=== PATIENT | male | born 1940 | race Caucasian/White ===

== ENCOUNTER → 2018-04-15 17:22 | Outpatient (CLI) | payer MEDICARE, OTHER, SELFPAY ==
[2018-04-07 15:57] VITALS: BMI 29.5
[2018-04-15 17:48] LABS: Absolute Lymphocyte Count 1.22 X10^3/ul (0.83-4.51); Absolute Neutrophil Count 6.6 X10^3/uL (2.0-7.7); Basophil# 0.01 X10^3/uL; Basophil% 0.1 % (0-1); Eosinophil# 0.08 X10^3/uL; Eosinophils% 0.9 % (0-5); Lymphocyte # 1.22 X10^3/ul (4.0); Lymphocyte % 13.6 % (19-41); Mean Corpuscular Hgb 31.1 pg (27.0-32.0); Mean Corpuscular Volume 100.5 fL (80-94); Mean Platelet Vol. 9.9 fl (6.2-12.0); Monocyte% 11.2 % (0-10); Neutrophil # 6.63 X10^3/uL (2.7-7.7); Neutrophil % 74.1 % (47-70); Platelet Count 281 K/mm3 (150-450); RBC Distribution Width CV 12.8 % (11.6-14.6); RBC Distribution Width SD 47.5 fl (35.1-43.9); Red Blood Count 5.91 M/mm3 (4.6-6.2)
[2018-04-15 17:55] LABS: Hematocrit 59.4 % (40-54)
[2018-04-15 17:58] LABS: Hemoglobin 18.4 g/dl (13.0-16.5); POSITIVE COUNT NO; POSITIVE DIFFERENTIAL NO; POSITIVE MORPHOLOGY NO
[2018-04-15 18:25] LABS: ALB/GLOB Ratio 1.1 RATIO (0.9-2.4); AST(SGOT) 13 U/L (15-37); Alanine Aminotransfer ALT/SGPT 18 U/L (16-61); Albumin, Serum 3.3 g/dL (3.2-5.0); Alkaline Phosphatase 45 U/L (45-117); Anion Gap 5 (5-15); BUN 10 mg/dL (7-18); BUN/Creat Ratio 12.6 RATIO (10-20); Calcium,Total 8.5 mg/dL (8.5-10.1); Chloride 101 mmol/L (98-107); Creatinine, Serum 0.79 mg/dL (0.70-1.30); EST Glomerular Filtration Rate 101 mL/min (>60); Est Glom Filt Rate - Afr Amer 122 mL/min (>60); Glucose 115 mg/dL (74-106); Potassium 4.7 mmol/L (3.5-5.1); Protein, Total 6.3 g/dL (6.4-8.2); Sodium Level 144 mmol/L (136-145); Thyroid Stim Hormone (TSH) 1.35 uIU/mL (0.358-3.74)
--- OUTSIDE RECORDS SUMMARY | 2018-06-20 12:19 | XMS RPT_ITS | Clinical Summary ---
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 Licha A Rajni 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 Licha A Rajni 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 (SNOMED 10/01 10/[address]) NONSPECIFIC R94.30 Inactive Licha A Rajni Abnormal result ABNORMAL (ICD-10-CM 10/01 10/01 RN of UNSPEC CV ) cardiovascular FUNCTION function study, STUDY unspecified abnormal R94.30 Removed Alexanrda Bowie Abnormal result stress test (ICD-10-CM 06/02 06/02 Edel RN of ) cardiovascular function study, unspecified Atherosclero I25.10 Inactive Alexandra Bowie Atherosclerotic tic heart (ICD-10-CM 10/01 10/01 Edel [facility] specialist disease disease of ) of [place] coronary artery coronary without angina artery pectoris without angina pectoris BODY MASS Z68.29 Active Kyle Wood Body mass index INDEX (ICD-10-CM 05/08 05/08 [place] (BMI) 29.0-29.9 ) 29.0-29.9, ADULT adult BODY MASS Z68.30 Inactive Kyle Wood Body mass index INDEX (ICD-10-CM 05/08 05/08 [place] (BMI) 30.0-30.9 ) 30.0-30.9, ADULT adult BODY MASS Z68.31 Inactive Kyle oWod Body mass index INDEX (ICD-10-CM 05/08 05/08 Govindispacarlos (BMI) 31.0-31.9 ) 31.0-31.9, ADULT adult LONG-TERM 163141137 Active Liya Long-term drug USE OF HIGH (SNOMED 10/01 10/[address]) MEDICATIONS POSTSURG Z98.61 Active Liya Coronary PERCUT (ICD-10-CM 10/01ward angioplasty TRANSLUMINAL ) status COR ANGPLSTY STS NONSPECIFIC R94.30 Removed Liya Abnormal result ABNORMAL (ICD-10-CM 10/01ward of UNSPEC CV ) cardiovascular FUNCTION function study, STUDY unspecified DYSPNEA 661530954 Active Liya M Dyspnea (SNOMED 10/01 10/[address]) ASHD, I25.10 Inactive Liya Atherosclerotic [place], (ICD-10-CM 10/01 10/01 Hernandez heart disease CORONARY ) of [place] ATHEROSCLERO coronary artery SIS, [place] without angina VESSEL pectoris ACUT MYOCARD I21.[address] elevation INFARCT OTH (ICD-10-CM 10/01ward (STEMI) ANT WALL ) myocardial EPIS CARE infarction UNS involving other coronary artery of anterior wall HYPERLIPIDEM 09716787 Active Liya M Hyperlipidemia IA (SNOMED 10/01 10/[address]) Medications Medication Instructions Start Stop Generic Name NDC Provider Date Date VIAGRA 100 MG 1/2-1 tablet by / SILDENAFIL [id number] Mendez A TABS mouth as needed 14 CITRATE [place] LIVESTOCK FARM MANAGER-C QUINAPRIL HCL 10 One tablet by / QUINAPRIL HCL 23160992545 Kyle F MG TABS mouth daily 05 Denis EMERSON METOPROLOL One tablet by / METOPROLOL [id number] Kyle Wood SUCCINATE ER 25 mouth daily 05 SUCCINATE [place] MG [id number]-MNH LIPITOR 10 MG One tablet by / ATORVASTATIN [id number] Kyle Wood TABS mouth daily 15 CALCIUM [place] LIPITOR 40 MG One tablet by / ATORVASTATIN 22128844986 Kyle Wood TABS mouth daily 05 CALCIUM [place] EMERSON METOPROLOL One tablet by / METOPROLOL 90415065760 Kyle Wood SUCCINATE ER 25 mouth daily 05 SUCCINATE [place] MG [id number] CHOLESTYRAMINE 1 pkg daily / CHOLESTYRAMINE [id number] Kyle Wood LIGHT 4 GM PACK 04 LIGHT [place] EMERSON CHOLESTYRAMINE 1 pkg daily CHOLESTYRAMINE [id number] Alexandra Pineda LIGHT 4 GM PACK 04 08/16 LIGHT ALEJANDRA Curtis METROGEL GEL 0.75% - Take as / METRONIDAZOLE 86404453696 Liya M directed 05 GEL Hernandez METROGEL GEL 0.75% - Take as METRONIDAZOLE [id number] Kyle Wood directed 05 05/08 GEL [place] EMERSON TRICOR 145 MG One tablet by / FENOFIBRATE 52490253981 Liya Pineda TABS mouth at 05 Hernandez bedtime. TRICOR 145 MG One tablet by FENOFIBRATE [id number] Kyle Wood TABS mouth at 05 05/08 [place] bedtime. ASPIR-81 TBEC One tablet by / ASPIRIN TBEC 35336540917 Kyle Wood mouth daily 09 [place] IMURAN 50 MG TABS 3-1/2 tablets / AZATHIOPRINE 58117312165 Liya M by mouth daily 05 Hernandez LIALDA TBEC 400mg, 2 / MESALAMINE TBEC 65676471307 Liya M tablets by 05 Hernandez mouth daily LIALDA TBEC 400mg, 2 / MESALAMINE TBEC 95970438373 Kyle Wood tablets by 05 03/30 [place] mouth daily NITROGLYCERIN 0.4 1 tablet under / NITROGLYCERIN 23957603383 Liya M MG/HR PT24 tongue every 5 05 Hernandez min up to 3 X LIPITOR 40 MG One tablet by ATORVASTATIN 59443197472 Kyle Wood TABS mouth daily 05/09 CALCIUM [place] ASPIRIN 81 MG One tablet by / ASPIRIN 31675822717 Kyle Wood TABS mouth daily 09 [place] ASACOL HD 800 MG Two tablets by / MESALAMINE 30173359871 Kyle Wood TBEC mouth twice 01 [place] daily METOPROLOL One tablet by METOPROLOL 04168012082 Howard Sparks Roof SUCCINATE ER 25 mouth daily 12/02 SUCCINATE SHADE MAKER MG CH32X-JEL PROSCAR 5 MG TABS One tablet by / FINASTERIDE 76165679692 Licha A Rajni mouth daily 12 RN PROSCAR 5 MG TABS One tablet by FINASTERIDE 63650376754 Howard H Roof mouth daily 12/02 SHADE MAKER MEMANTINE HCL 5 One tablet by / MEMANTINE HCL 70108982463 Licha A Rajni MG TABS mouth twice 12 RN daily MEMANTINE HCL 5 One tablet by MEMANTINE HCL 54050536494 Howard H Roof MG TABS mouth twice 12 12/02 SHADE MAKER daily IMURAN 50 MG TABS 3 tablets by / AZATHIOPRINE 24749030037 Kyle Wood mouth daily [place] NITROSTAT 0.4 MG 1 tablet under / NITROGLYCERIN 61690339228 Kyle Wood [facility]BL [facility] 3 X ASPIRIN EC 81 MG Take one tab by / ASPIRIN 32625093380 Deonna K TBEC mouth daily 09 Arney 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 CARDURA 4 MG TABS One tablet by / DOXAZOSIN 62982580681 Licha A Rajni mouth daily at 12 MESYLATE RN bedtime ASACOL HD 800 MG Two tablets by / MESALAMINE 00824129901 Licha A Rajni TBEC mouth three 01 RN times a day PREDNISONE 20 MG One tablet by / PREDNISONE 55639658480 Licha A Rajni TABS mouth daily 12 RN LIPITOR 40 MG One tablet by / ATORVASTATIN 98878797046 Licha A Rajni TABS mouth daily 15 CALCIUM RN DONEPEZIL HCL 10 One tablet by / DONEPEZIL HCL 12504311559 Licha Borges Rajni MG TBDP mouth daily at 12 RN bedtime LISINOPRIL 10 MG One tablet by / LISINOPRIL 23238842904 Licha Borges Rajni TABS mouth daily 05 RN Medications Administered No information available. Allergies, Adverse Reactions, Alerts Allergy Name Reaction Description Start Date Severity Status Provider NKDA Mild Active Kyle Barrios MD Results Date Name Value Unit Range Flag Description Lab Report: CBCD RBC M/UL 4.70 10*6/uL 4.6-6.2 N red blood count Replaced Document: [facility] ECG Observations QT/QTC 457 ms QT interval/QT interval (corrected for heart rate), electrocardiogram Office Visit ALCOHOLCOUNS no Alcoholism counseling (procedure) Replaced Document: [facility] ECG Observations EKG INTERP Sinus Rhythm Diffuse low electrocardiogram voltage. -Incomplete interpretation right bundle branch block. -Nonspecific ST depression + T-abnormality -Nondiagnostic -Possible Anteroseptal ischemia. ABNORMAL EKG T AXIS 44 deg T wave axis, electrocardiogram EKG QRS AXIS 63 deg QRS axis, electrocardiogram EKG PWAVAXIS 53 deg P wave axis, electrocardiogram QRS INTERVAL 112 ms QRS duration, electrocardiogram QT INTERVAL new path ms QT interval, electrocardiogram NM INTERVAL 172 ms NM interval, electrocardiogram EKGHRTRATE 88 BPM heart rate on electrocardiogram Office Visit CHD 10YR RSK N/A General cardiovascular disease 10Y risk [#] [place].D'Agostino CARD RSK GRP C cardiac risk group Lab Report: Liver Profile [id number] 54 U/L 50-136 GE use only - for LinkLogic import when terms are not otherwise specified Lab Report: PSA,Total- Diagnostic PSA-TOTAL 5.15 ng/mL 0.0-4.0 H prostate specific antigen, total Lab Report: Hemoglobin A1c HGBA1C 6.4 % 4.2-6.3 H Hemoglobin A1c/Hemoglobin.total in Blood Clinical Lists Update: Preload TSH 1.42 u[iU]/mL thyroid stimulating hormone, serum CALCIUM 9.0 mg/dL calcium, serum CREATININE 1.13 mg/dL creatinine, serum BUN 19 mg/dL urea nitrogen, blood CO2 26.0 mmol/L carbon dioxide, venous blood CHLORIDE 105 mmol/L chloride, serum POTASSIUM 4.1 mmol/L potassium, serum SODIUM 139 mmol/L sodium, serum PLATELETS 216 10*3/mm3 platelet count HCT 48.5 % hematocrit, blood HGB 16.5 g/dL hemoglobin, blood WBC BLOOD 6.9 10*9/L leukocyte (white blood cells) count, blood Office Visit SMOK STATUS Former smoker Tobacco use [facility] Lab Report: Liver Profile BILI DIRECT 0.15 mg/dL 0.00-0.30 bilirubin, serum, direct BILI TOTAL 0.60 mg/dL 0.20-1.00 bilirubin, serum, total SGPT (ALT) 19 U/L 12-78 alanine aminotransferase (SGPT), serum ALK PHOS 47 U/L 45-117 alkaline phosphatase, serum SGOT (AST) 9 U/L 15-37 L aspartate aminotransferase (SGOT), serum GLOBULIN TOT 3.1 g/dL 2.3-3.5 globulins, serum, total ALBUMIN 3.4 g/dL 3.4-5.0 albumin, serum PROTEIN, TOT 6.5 g/dL 6.4-8.2 protein, total, serum Lab Report: Lipid Profile VLDL 15 mg/dL 5-40 very low density lipoproteins LDL 102 mg/dL 0-130 Cholesterol in LDL [Mass/volume] in Serum or Plasma HDL 68 mg/dL Cholesterol in HDL [Mass/volume] in Serum or Plasma TRIGLYCRDES 76 mg/dL Triglyceride [Mass/volume] in Serum or Plasma CHOLESTEROL 185 mg/dL 200 Cholesterol [Mass/volume] in Serum or Plasma Clinical Lists Update: Preload FUENTES 65 % Left ventricular Ejection fraction Office Visit: [facility] DIET EXCHANGE FLOOR MANAGER yes Dietary management education, guidance, and counseling (procedure) MEDS REVIEW Done Documentation of current medications (procedure) FALLRSKASSLAURO No Fall risk assessment Plan of Care Type Date Detail Appointment 03:45 PM Kyle Barrios MD, [address] [facility], [address], [place], [address], Pending order PFM Pending order Follow Up Appt 6 months Pending order *Hepatic Function Panel Pending order *Lipid Profile CC PCP Pending order PFM Pending order Follow Up Appt Other Pending order CT Chest with Contrast Pending order CT Chest with Contrast Pending order Left Heart Cath Pending order *BMP Pending order *CBC without Diff Pending order *PT/INR Pending order *PTT-Partial Thromboplastin Time Pending order X-Ray, Chest, PA & Lateral Pending order EKG (In office) Pending order PFM Pending order Follow Up Appt 6 months Pending order Echocardiogram (complete) Pending order Nuclear stress test -Lexiscan Pending order *Hepatic Function Panel Pending order *Lipid Profile CC PCP Pending order PFM Pending order Follow Up Appt 6 months Pending order *Hepatic Function Panel Pending order *Lipid Profile CC PCP Pending order PFM Pending order Follow Up Appt 6 months Pending order *Hepatic Function Panel Pending order *Lipid Profile CC PCP Pending order PFM Pending order Follow Up Appt 6 months Pending order *Hepatic Function Panel Pending order *Lipid Profile CC PCP Pending order *Hepatic Function Panel Pending order *Lipid Profile CC PCP Pending order PFM Pending order Follow Up Appt 6 months Pending order *Hepatic Function Panel Pending order *Lipid Profile CC PCP Pending order *Hepatic Function Panel Pending order *Lipid Profile CC PCP Pending order PFM Pending order Follow Up Appt 6 months Pending order *Hepatic Function Panel Pending order *Lipid Profile CC PCP Pending order EKG (In office) Pending order *Hepatic Function Panel Pending order *Lipid Profile CC PCP Pending order MMM Pending order PFM Pending order Follow Up Appt 6 months Pending order *Lipid Profile CC PCP Pending order *Hepatic Function Panel Pending order *Lipid Profile CC PCP Pending order *Hepatic Function Panel Pending order PFM Pending order Follow Up Appt 6 months Pending order *Lipid Profile CC PCP Pending order *Hepatic Function Panel Pending order *Lipid Profile Pending order *Hepatic Function Panel Pending order Follow Up Appt 6 months Pending order EKG (In office) Pending order Echocardiogram (complete) Pending order Nuclear stress test -adenosine Pending order *Hepatic Function Panel Pending order *Lipid Profile Pending order *Lipid Profile Pending order *Hepatic Function Panel Patient education SHOPPING%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%20A%20HEALTHY%20DIET Patient education HYPERLIPIDEMIA, DYSPNEA, LIPID%20PROFILE, CHOLESTEROL%20AND%20YOUR%20HEALTH Procedures Code Procedure Name Date Entry Date F/U PFM PFM FUA 6 months Follow Up Appt 6 months F/U PFM PFM F/U Appt Follow Up Appt Other [facility] Left Heart Cath CPT-34484 EKG (In office) CPT-66725 X-Ray, Chest, PA & Lateral F/U PFM PFM FUA 6 months Follow Up Appt 6 months NSTLexi Nuclear stress test -Lexiscan Echo Echocardiogram (complete) 0788-1 *Hepatic Function Panel 59100-3 *Lipid Profile CC PCP F/U PFM PFM FUA 6 months Follow Up Appt 6 months 0788-1 *Hepatic Function Panel 35097-5 *Lipid Profile CC PCP F/U PFM PFM FUA 6 months Follow Up Appt 6 months 0788-1 *Hepatic Function Panel 52107-6 *Lipid Profile CC PCP F/U PFM PFM FUA 6 months Follow Up Appt 6 months [facility]-[id number] SNOMED-CT: [id number] Current Medications Documented 0788-1 *Hepatic Function Panel 07942-1 *Lipid Profile CC PCP 0788-1 *Hepatic Function Panel 57528-1 *Lipid Profile CC PCP F/U PFM PFM FUA 6 months Follow Up Appt 6 months 0788-1 *Hepatic Function Panel 01455-3 *Lipid Profile CC PCP 0788-1 *Hepatic Function Panel 74664-0 *Lipid Profile CC PCP CPT-41891 EKG (In office) F/U PFM PFM FUA 6 months Follow Up Appt 6 months 0788-1 *Hepatic Function Panel 19926-9 *Lipid Profile CC PCP 21983-1 *Lipid Profile CC PCP 0788-1 *Hepatic Function Panel FUA 6 months Follow Up Appt 6 months F/U MMM MMM F/U PFM PFM 84689-9 *Lipid Profile CC PCP 0788-1 *Hepatic Function Panel 12992-6 *Lipid Profile CC PCP 0788-1 *Hepatic Function Panel F/U PFM PFM FUA 6 months Follow Up Appt 6 months 97211-6 *Lipid Profile CC PCP 0788-1 *Hepatic Function Panel 32020-3 *Lipid Profile 0788-1 *Hepatic Function Panel NSTA Nuclear stress test -adenosine Echo Echocardiogram (complete) FUA 6 months Follow Up Appt 6 months CPT-36586 EKG (In office) 0788-1 *Hepatic Function Panel 89847-0 *Lipid Profile 0788-1 *Hepatic Function Panel 13870-1 *Lipid Profile Vital Signs Date Name Value Unit Description BMI (Body Mass Index) 28.76 kg/m2 Body Mass Index [Ratio] BP Diastolic 72 mm[Hg] blood pressure, diastolic - 8462-4 BP Systolic 120 mm[Hg] blood pressure, systolic - 8480-6 Heart Rate 94 /min pulse rate E&M - 8867-4 Height 68 [in_us] height E&M - 8302-2 Weight Measured 189.2 [lb_av] weight E&M - 3141-9 Respiratory Rate 21 /min respiratory rate E&M - 9279-1 BSA (Body Surface Area) 2.00 body surface area
--- OUTSIDE RECORDS SUMMARY | 2018-06-20 12:19 | XMS RPT_ITS | Clinical Summary ---
:1940 Author Organization [facility], 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 7857728 6425/0 Active Licha A Rajni 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 (SNOMED 10/01 10/[address]) NONSPECIFIC R94.30 Inactive Licha A Rajni Abnormal result ABNORMAL (ICD-10-CM 10/01 10/01 RN of UNSPEC CV ) cardiovascular FUNCTION function study, STUDY unspecified abnormal R94.30 Removed Alexandra Bowie Abnormal result stress test (ICD-10-CM 06/02 06/02 Edel RN of ) cardiovascular function study, unspecified Atherosclero I25.10 Inactive Alexandra Bowie Atherosclerotic tic heart (ICD-10-CM 10/01 10/01 Edel community board member disease disease of ) [place] coronary artery coronary without angina artery pectoris without angina pectoris BODY MASS Z68.29 Active Kyle Wood Body mass index INDEX (ICD-10-CM 05/08 05/08 [place] (BMI) 29.0-29.9 ) 29.0-29.9, ADULT adult BODY MASS Z68.30 Inactive Kyle Wood Body mass index INDEX (ICD-10-CM 05/08 05/08 [place] (BMI) 30.0-30.9 ) 30.0-30.9, ADULT adult BODY MASS Z68.31 Inactive Kyle Wood Body mass index INDEX (ICD-10-CM 05/08 05/08 [place] (BMI) 31.0-31.9 ) 31.0-31.9, ADULT adult LONG-TERM 041577813 Active Liya Long-term drug USE OF HIGH (SNOMED 10/01 10/[address]) MEDICATIONS POSTSURG Z98.61 Active Liya Coronary PERCUT (ICD-10-CM 10/01ward angioplasty TRANSLUMINAL ) status COR ANGPLSTY STS NONSPECIFIC R94.30 Removed Liya Abnormal result ABNORMAL (ICD-10-CM 10/01ward of UNSPEC CV ) cardiovascular FUNCTION function study, STUDY unspecified DYSPNEA 848500238 Active Liya M Dyspnea (SNOMED 10/01 10/[address]) ASHD, I25.10 Inactive Liya Atherosclerotic [place], (ICD-10-CM 10/01 10/01 Hernandez heart disease CORONARY ) of [place] ATHEROSCLERO coronary artery SIS, [place] without angina VESSEL pectoris ACUT MYOCARD I21.[address] elevation INFARCT OTH (ICD-10-CM 10/01ward (STEMI) ANT WALL ) myocardial EPIS CARE infarction UNS involving other coronary artery of anterior wall HYPERLIPIDEM 78093496 Active Liya M Hyperlipidemia IA (SNOMED 10/01 10/[address]) Medications Medication Instructions Start Stop Generic Name NDC Provider Date Date VIAGRA 100 MG 1/2-1 tablet by / SILDENAFIL [id number] Mendez A TABS mouth as needed 14 CITRATE [place] NURSE ANESTHESIA PROGRAM DIRECTOR-C QUINAPRIL HCL 10 One tablet by / QUINAPRIL HCL [id number] Kyle F MG TABS mouth daily 05 Denis EMERSON METOPROLOL One tablet by / METOPROLOL [id number] Kyle Wood SUCCINATE ER 25 mouth daily 05 SUCCINATE [place] MG VI29V-PQA LIPITOR 10 MG One tablet by / ATORVASTATIN 24490806088 Kyle Wood TABS mouth daily 15 CALCIUM [place] LIPITOR 40 MG One tablet by / ATORVASTATIN 67693098299 Kyle Wood TABS mouth daily 05 CALCIUM [place] EMERSON METOPROLOL One tablet by / METOPROLOL 06818791027 Kyle Wood SUCCINATE ER 25 mouth daily 05 SUCCINATE [place] MG SG05I-WRI CHOLESTYRAMINE 1 pkg daily / CHOLESTYRAMINE [id number] Kyle Wood LIGHT 4 GM PACK 04 LIGHT [place] EMERSON CHOLESTYRAMINE 1 pkg daily CHOLESTYRAMINE [id number] Alxeandra Pineda LIGHT 4 GM PACK 04 08/16 LIGHT ALEJANDRA Curtis METROGEL GEL 0.75% - Take as / METRONIDAZOLE [id number] Liya M directed 05 GEL Hernandez METROGEL GEL 0.75% - Take as METRONIDAZOLE [id number] Kyle Wood directed 05 05/08 GEL [place] EMERSON TRICOR 145 MG One tablet by / FENOFIBRATE [id number] Liya Pineda TABS mouth at 05 [place] bedtime. TRICOR 145 MG One tablet by FENOFIBRATE [id number] Kyle Wood TABS mouth at 05 05/08 [place] bedtime. ASPIR-81 TBEC One tablet by / ASPIRIN TBEC 93703430023 Kyle Wood mouth daily 09 [place] IMURAN 50 MG TABS 3-1/2 tablets / AZATHIOPRINE 32895109725 Liya M by mouth daily 05 Hernandez LIALDA TBEC 400mg, 2 / MESALAMINE TBEC 68824120921 Liya M tablets by 05 [place] mouth daily LIALDA TBEC 400mg, 2 / MESALAMINE TBEC 80256351550 Kyle Wood tablets by 05 03/30 [place] mouth daily NITROGLYCERIN 0.4 1 tablet under / NITROGLYCERIN 57295468048 Liya M MG/HR PT24 tongue every 5 05 Hernandez min up to 3 X LIPITOR 40 MG One tablet by ATORVASTATIN 18558076595 Kyle Wood TABS mouth daily 05/09 CALCIUM [place] ASPIRIN 81 MG One tablet by / ASPIRIN 01366849812 Kyle Wood TABS mouth daily 09 [place] ASACOL HD 800 MG Two tablets by / MESALAMINE 22625841169 Kyle Wood TBEC mouth twice 01 [place] daily METOPROLOL One tablet by METOPROLOL 15178547164 Howard Sparks Roof SUCCINATE ER 25 mouth daily 12/02 SUCCINATE RUFFLING [employer] MG ST18I-FAW PROSCAR 5 MG TABS One tablet by / FINASTERIDE 32974986460 Licha A Rajni mouth daily 12 RN PROSCAR 5 MG TABS One tablet by FINASTERIDE 50435641482 Howard H Roof mouth daily 12/02 RU[employer]LING [employer] MEMANTINE HCL 5 One tablet by / MEMANTINE HCL 81608756932 Licha A Rajni MG TABS mouth twice 12 RN daily MEMANTINE HCL 5 One tablet by MEMANTINE HCL 47724581348 Howard H Roof MG TABS mouth twice 12 12/02 RUFFLING [employer] daily IMURAN 50 MG TABS 3 tablets by / AZATHIOPRINE 78960554398 Kyle Wood mouth daily [place] NITROSTAT 0.4 MG 1 tablet under / NITROGLYCERIN 19132928883 Kyle [facility] SUBL [facility] 5 [facility] to 3 X ASPIRIN EC 81 MG Take one tab by / ASPIRIN 61135896931 Deonna K TBEC mouth daily 09 [place] [employer] CARDURA 4 MG TABS One tablet by / DOXAZOSIN 68283048464 Licha A Rajni mouth daily at 12 MESYLATE RN bedtime ASACOL HD 800 MG Two tablets by / MESALAMINE 33892051494 Licha A Rajni TBEC mouth three 01 RN times a day PREDNISONE 20 MG One tablet by / PREDNISONE 99195028321 Licha A Rajni TABS mouth daily 12 RN LIPITOR 40 MG One tablet by / ATORVASTATIN 22044358358 Licha A Rajni TABS mouth daily 15 CALCIUM RN DONEPEZIL HCL 10 One tablet by / DONEPEZIL HCL 73299175740 Licha Borges Rajni MG TBDP mouth daily at 12 RN bedtime LISINOPRIL 10 MG One tablet by / LISINOPRIL 19357987944 Licha Borges Rajni TABS mouth daily 05 [...] INTERVAL new path ms QT interval, electrocardiogram MO INTERVAL 172 ms MO interval, electrocardiogram EKGHRTRATE 88 BPM heart rate on electrocardiogram Office Visit CHD 10YR RSK N/A General cardiovascular disease 10Y risk [#] [place] CARD RSK GRP C cardiac risk group [...] Visit SMOK STATUS Former smoker Tobacco use [facility] Lab Report: Liver Profile BILI DIRECT [...] ventricular Ejection fraction Office Visit: [facility] DIET INJURY PREVENTION COORDINATOR yes Dietary management education, guidance, and counseling (procedure) MEDS REVIEW Done Documentation of current medications (procedure) FALLRSKASSLAURO No Fall risk assessment Plan of Care Type Date Detail Appointment 03:45 PM Kyle Barrios MD, [address], [address], [place], [address], Pending order PFM Pending order Follow Up [...] PFM F/U Appt Follow Up Appt Other [facility] Left Heart Cath CPT-06262 EKG (In office) CPT-08532 X-Ray, Chest, PA & Lateral F/U PFM PFM FUA 6 months Follow Up Appt 6 months NSTLexi Nuclear stress test -Lexiscan Echo Echocardiogram (complete) 0788-1 *Hepatic Function Panel 25580-5 *Lipid Profile CC PCP F/U PFM PFM FUA 6 months Follow Up Appt 6 months 0788-1 *Hepatic Function Panel 65118-7 *Lipid Profile CC PCP F/U PFM PFM FUA 6 months Follow Up Appt 6 months 0788-1 *Hepatic Function Panel 73708-3 *Lipid Profile CC PCP F/U PFM PFM FUA 6 months Follow Up Appt 6 months [facility]-[id number] SNOMED-CT: [id number] Current Medications Documented 0788-1 *Hepatic Function Panel 11617-2 *Lipid Profile CC PCP 0788-1 *Hepatic Function Panel 94910-4 *Lipid Profile CC PCP F/U PFM PFM FUA 6 months Follow Up Appt 6 months 0788-1 *Hepatic Function Panel 97794-6 *Lipid Profile CC PCP 0788-1 *Hepatic Function Panel 39804-1 *Lipid Profile CC PCP CPT-47145 EKG (In office) F/U PFM PFM FUA 6 months Follow Up Appt 6 months 0788-1 *Hepatic Function Panel 33258-3 *Lipid Profile CC PCP 60594-1 *Lipid Profile CC PCP 0788-1 *Hepatic Function Panel FUA 6 months Follow Up Appt 6 months F/U MMM MMM F/U PFM PFM 97078-5 *Lipid Profile CC PCP 0788-1 *Hepatic Function Panel 64895-7 *Lipid Profile CC PCP 0788-1 *Hepatic Function Panel F/U PFM PFM FUA 6 months Follow Up Appt 6 months 09131-2 *Lipid Profile CC PCP 0788-1 *Hepatic Function Panel 95599-4 *Lipid Profile 0788-1 *Hepatic Function Panel NSTA Nuclear stress test -adenosine Echo Echocardiogram (complete) FUA 6 months Follow Up Appt 6 months CPT-10465 EKG (In office) 0788-1 *Hepatic Function Panel 71043-7 *Lipid Profile 0788-1 *Hepatic Function Panel 31152-0 *Lipid Profile Vital Signs Date Name Value [...]
--- OUTSIDE RECORDS SUMMARY | 2018-06-20 12:19 | XMS RPT_ITS ---
:1940 Author Organization OHIP Care Team Providers Name Role Phone Cesar, Ezra Chi Attending Unavailable Cesar, Ezra Chi Primary Care Unavailable Kyle Barrios Attending Unavailable Cesar, Ezra Chi Referring Unavailable Cesar, Ezra Chi Primary Care Unavailable Alexandra Hollingsworth Attending Unavailable Howard Edwards Attending Unavailable Cesar, Ezra Chi Referring Unavailable PROBLEMS PROBLEMS DATE TYPE CONDITION / CODE ATTENDING STATUS SOURCE 04/07/2018 Unknown E78.5 - Howard Edwards Active [place] Hyperlipidemia, Community unspecified / Hospital E78.5(ICD-10) Repository 04/07/2018 Unknown I25.10 - Howard Edwards Active [place] Atherosclerotic heart Community disease of [facility] coronary artery Repository without angina pectoris / I25.10(ICD-10) 04/07/2018 Unknown Z79.899 - Other long Howard Edwards Active [place] term (current) drug Community therapy / Hospital Z79.899(ICD-10) Repository PROCEDURES PROCEDURES No Procedure Records FoundRESULTS RESULTS CBC W/DIFF, AUTOMATED Collected: 04/15/2018 Status: F Source: [facility] 5:23 PM [facility] REPOSITORY TYPE CODE TESTS RESULT OUT OF RANGE REFERENCE UNITS LAB L100.1000 4.4-11.0 K/mm3 Normal WBC 9.0 LAB L100.1200 4.6-6.2 M/mm3 Normal RBC 5.91 LAB L100.1300 13.0-16.5 g/dl High alert HGB 18.4 Result Comment: CRITICAL VALUE VERIFIED. CALLED TO DR. GUERRERO 04/15/18 [id number] Veronica Guidry. RESULTS READ BACK BY SAME . LAB L100.1400 40-54 % High HCT 59.4 LAB L100.1500 80-94 fL High MCV 100.5 LAB L100.1600 27.0-32.0 pg Normal MCH 31.1 LAB L100.1700 32-36 g/gl Low MCHC 31.0 LAB L100.1810 11.6-14.6 % Normal RDW CV 12.8 LAB L100.1820 35.1-43.9 fl High RDW SD 47.5 LAB L100.1900 150-450 K/mm3 Normal PLT 281 LAB L100.2000 6.2-12.0 fl Normal MPV 9.9 LAB L100.2100 47-70 % High NEUT% 74.1 LAB L100.2200 19-41 % Low LY% 13.6 LAB L100.2300 0-10 % High MONO% 11.2 LAB L100.2400 0-5 % Normal EO% 0.9 LAB L100.2500 0-1 % Normal BASO% 0.1 LAB L100.2550 0.0-0.9 % Normal IM GRAN % 0.100 Result Comment: IG% - Immature Granulocytes (promyelocytes, myelocytes and metamyelocytes) > 1% indicates that a LEFT SHIFT is Present. LAB L100.2620 2.0-7.7 X10 3/uL Normal Absolute Neut 6.6 LAB L100.2720 0.83-4.51 X10 3/ul Normal Absolute Lymph 1.22 Performed By: #### L100.0100 #### [facility] [address] [place], [place], [address] COMPREHENSIVE METABOLIC Collected: 04/15/2018 Status: F [facility] [place] [place] REPOSITORY TYPE CODE TESTS RESULT OUT OF RANGE REFERENCE UNITS LAB L501.0100 74-106 mg/dL High GLU 115 Result Comment: Fasting Glucose result from 100 to 125 mg/dL suggests IMPAIRED HOMEOSTASIS per A.D.A. criteria. Please note revised GLUCOSE reference range effective 2017. LAB L501.1000 7-18 mg/dL Normal BUN 10 LAB L501.1100 0.70-1.30 mg/dL Normal CREAT,SERUM 0.79 Result Comment: The validity of the calculated GFR AND GFRAA in patients over 70 years has not been determined. Clinical correlation is essential. LAB L501.1110 >60 mL/min Normal EST GFR 101 Result Comment: Non- GFR Calc LAB L501.1115 >60 mL/min Normal EST GFR - AA 122 Result Comment: GFR Calc LAB L501.1300 10-20 RATIO Normal BUN/CRE 12.6 LAB L501.1500 6.4-8.2 g/dL Low T PROT 6.3 LAB L501.1800 3.2-5.0 g/dL Normal ALB 3.3 LAB L501.1950 2.2-4.2 g/dL Normal GLOB 3.0 LAB L501.2000 0.9-2.4 RATIO Normal A/G 1.1 LAB L501.2200 8.5-10.1 mg/dL CA Normal 8.5 LAB L501.4100 15-37 U/L Low AST 13 LAB L501.4305 45-117 U/L Normal ALK P 45 LAB L501.4405 16-61 U/L Normal ALT 18 LAB L501.4600 0.20-1.00 mg/dL High T BILI 1.10 LAB L501.5300 136-145 mmol/L NA Normal 144 LAB L501.5600 3.5-5.1 mmol/L K Normal 4.7 LAB L501.5900 98-107 mmol/L CL Normal 101 LAB L501.6100 21.0-32.0 mmol/L High CO2 38.0 LAB L501.6200 5-15 Normal GAP 5 Performed By: #### L500.4050, L501.9520 #### [facility] [address] [place], [place], [id number] THYROID STIM HORMONE Collected: 04/15/2018 Status: F Source: [facility]INE (TSH) 5:23 PM [facility] [place] [place] REPOSITORY TYPE CODE TESTS RESULT OUT OF RANGE REFERENCE UNITS LAB L501.9520 0.358-3.74 uIU/mL Normal TSH 1.35 Performed By: #### L500.4050, L501.9520 #### [facility] [address] [place], [address] VITAMIN D,25 HYDROXY Collected: 04/15/2018 Status: F Source: [facility] 5:23 PM [facility] [place] [place] REPOSITORY TYPE CODE TESTS RESULT OUT OF REFERENCE UNITS RANGE LAB L506.1000 29.95-100.01 ng/mL Low Vitamin D 7.0 25-OH Result Comment: Vitamin D 25(OH) Status Range Deficiency <20 ng/mL (50nmol/L) Insuffciency 20 - 30 ng/mL (50 - 75 nmol/L) Sufficiency 30 - 100 ng/mL (75 - 250 nmol/L) Toxicity >100 ng/mL (>250 nmol/L) Performed By: #### L506.1000 #### [facility] [address] [place], [address] CARDIOLOGY VISIT Observed: 04/07/2018 Status: F Source: [facility] REPORT 4:41 PM [facility] [place] [place] REPOSITORY [facility] [address] [place] [address] OFFICE VISIT Date of Service: 04/07/18 MR#: [id number] Acct: [id number] Name: RICKY MAYA Rep #: [id number] : 1940 Provider: KENNETH Edwards Age/Sex: 77/M Location: [facility] [place] Status: Signed HPI HPI Details: RICKY MAYA is a 77 M who presents to the office today for a cardiovascular outpatient follow-up. He has a history of nonobstructive coronary artery disease, hyperlipidemia, COPD, and previous tobacco abuse. Pt. denies chest, arm, jaw, or neck discomfort. His exercise tolerance is stable. His shortness of breath is unchanged. Pt. denies symptoms of palpitations, lightheadedness, dizziness, near syncope, or syncopal episodes. Pt. denies edema or claudication issues. Pt. denies orthopnea, PND, myalgia, or unexplainable fatigue. Intake Vital Signs04/07/18 Height 5 ft 8 in 04/07/18 Weight: 194 lb 04/07/18 Body Mass Index (BMI) 29.5 04/07/18 Blood Pressure 114/66 Intake Visit Reasons: 9 M Gang Investigator Required: No Accompanied by: None Is patient in pain?: No Allergies No Known Allergies Allergy (Verified 04/07/18 16:06) Medications Azathioprine 150 mg PO DAILY 06/17/16 [History Confirmed 04/07/18] Mesalamine [Asacol Hd] 2 tab PO TID 06/17/16 [History Confirmed 04/07/18] Prednisone 20 mg PO DAILY 06/17/16 [History Confirmed 04/07/18] Aspirin [Aspirin, Baby] 81 mg PO DAILY@0800 tab.chew 06/18/16 [Rx Confirmed 04/07/18] Donepezil HCl [Aricept] 10 mg PO QHS #30 tab 06/18/16 [Rx Confirmed 04/07/18] nitroglycerin 0.4 mg sublingual tablet 0.4 mg SUBLINGUAL Q5M PRN 06/08/17 [History Confirmed 04/07/18] atorvastatin 40 mg tablet 40 mg PO QHS #90 tab 04/07/18 [Rx Confirmed 04/07/18] lisinopril 10 mg tablet 10 mg PO DAILY #90 tab 04/07/18 [Rx Confirmed 04/07/18] metoprolol succinate ER 25 mg tablet,extended release 24 hr 25 mg PO DAILY #90 tab 04/07/18 [Rx Confirmed 04/07/18] sildenafil 100 mg tablet 100 mg PO ONCE PRN #14 tab 04/07/18 [Rx Confirmed 04/07/18] PFSH Medical History Hyperlipidemia (Acute) Old myocardial infarction (Acute) Atherosclerotic heart disease of [place] coronary artery without angina pectoris (Chronic) Long-term use of high-risk medication (Acute) COPD (chronic obstructive pulmonary disease) (Chronic) Ulcerative colitis (Chronic) Surgical History History of cholecystectomy (Chronic) Postsurgical percutaneous transluminal coronary angioplasty (PTCA) status (Chronic) Family History Mother CAD (coronary artery disease) Diabetes Social History Smoking Status: Former smoker how long ago did patient quit smokin years ago alcohol intake: current alcohol intake frequency: 0-2 drinks per day Alcohol type: beer caffeine: Yes Type: coffee Number of servings: 1 ROS Const Const: Negative for weakness, body ache, fever(s), chills or fatigue ENT ENT: Negative for dizziness Cardio Chest Pain: No Palpitations: No Edema: None Muscle aches with walking: None Resp Respiratory: Positive for SOB with activity; negative for SOB at rest, SOB orthopnea\SOB lying down or paroxysmal nocturnal dyspnea GI GI: Negative nausea, black,tarry stools, bright, red blood in stools or vomiting blood/hematemesis : Negative for hematuria or frequent nighttime urination/ nocturia Musc Musc: Negative for muscle aches/ myalgia Skin Skin: Negative non-healing lesions or rash Neuro Neuro: Negative for lightheadedness, near syncope, syncope, orthostatic symptoms, weakness or dizziness Endo Endo: Negative for fatigue Allergy Allergy/Immunology: Negative for rash Cardiology Exam Const Appearance: cooperative, healthy appearing, comfortable and no acute distress Nutritional Appearance: average body habitus and well nourished Orientation: alert, awake and oriented x3 Head Head: normal to inspection Ears: hearing grossly normal bilaterally Nose: external nose normal Face and Sinus: face symmetric Mouth: oral mucosae normal Eyes General: appearance normal, both eyes and all related structures Eyelids: eyelids normal EOM: EOM intact bilaterally Neck Neck: no JVD and normal visual inspection Carotids: normal carotid upstroke Chest Chest inspection: normal inspection of the chest, normal respiratory effort and symmetric chest movement; negative cough Auscultation: Bilateral: Clear to Auscultation Cardio Rate: regular rate Rhythm: regular rhythm Heart sounds: S1 normal and S2 normal; negative rub, gallop or murmur GI GI: normal to inspection Neuro General: alert, awake, oriented x3 and CN's II-XI intact bilaterally Skin Skin: no rashes or lesions noted Extremities Pulses: Normal: Right Posterior Tibial Pulse, Left Posterior Tibial Pulse, Right Radial Pulse, Left Radial Pulse Lower Extremity Edema: None: Bilateral Psych Psychological: normal affect Assessment AND Plan 1. Atherosclerosis of [place] coronary artery of [place] heart without angina pectoris I25.10 Plan His heart catheterization in May 2016 showed nonobstructive disease. His echocardiogram in May 2016 showed ejection fraction 55%. Patient denies any chest pain, arm pain, jaw pain, neck pain, worsening shortness of breath, or fatigue suggestive of angina at this time. We will continue to monitor this. We will not make any medication regimen changes and will continue risk factor modification. 2. Hyperlipidemia, unspecified hyperlipidemia type E78.5 Plan Patient has not had this evaluated since March 2016. At that time his cholesterol was noted to be 185, HDL: 68, LDL: 102, and triglycerides: 76. He will have this repeated at his earliest convenience. He will continue with current statin medication. Orders Orders: 3. Long-term use of high-risk medication Z79.899 Plan He will undergo liver evaluation along with his lipid panel to ensure safety. Further recommendation will be made based on results of his laboratory tests. Plan Detail Other Medications New: Refilled: Additional Comments Thank you for allowing us to participate in the patient's plan of care, if you have any questions please do not hesitate to call. This note was generated using a voice recognition system and there may be incorrect words, spelling, or punctuation that were not noted upon reviewing the office note prior to saving. Follow Up 12 Months (PFM) 6 Months (YARD RIGGER/PA) Coding Level of Care Code Off vis,est,level 3 Diagnoses Atherosclerosis of [place] coronary artery of [place] heart without angina pectoris I25.10 [place] vs. transplanted heart: [place] heart Hyperlipidemia, unspecified hyperlipidemia type E78.5 Hyperlipidemia type: unspecified Long-term use of high-risk medication Z79.899 Coding Level of Care Code Off vis,est,level 3 Diagnoses Atherosclerosis of [place] coronary artery of [place] heart without angina pectoris I25.10 [place] vs. transplanted heart: [place] heart Hyperlipidemia, unspecified hyperlipidemia type E78.5 Hyperlipidemia type: unspecified Long-term use of high-risk medication Z79.899 Supplemental Info Supplemental Information He did have a transthoracic echocardiogram performed on 05/29/2016. The results are as noted below. Interpretation Summary The study was technically difficult. Contrast injection was performed. Based upon the 2D echocardiographic and contrast enhanced images obtained there appears to be grossly normal left ventricular size, wall motion, and systolic function. The estimated ejection fraction is 55 %. Trivial mitral valve insufficiency. Trivial tricuspid valve insufficiency. Mild focal aortic valve thickening. He did have a pharmacologic stress nuclear imaging study performed on 05/29/2016. The results are as noted below. IMPRESSION: 1. Rest and stress SPECT Cardiolite nuclear imaging demonstrate myocardial perfusion changes appearing compatible with an area of stress-induced myocardial ischemia involving the apical regions. 2. The gated Cardiolite study reports an LVEF of 64%. Diagnostic cardiac catheterization was performed at [facility] on 12/10/2005. The results are as noted below. FINAL IMPRESSION: 1. Mild elevation of left ventricular end diastolic pressures compatible with decreased diastolic compliance. 2. Secondary pulmonary hypertension thought related to underlying noncardiac pulmonary disease process 3 No obvious evidence of intracardiac shunting phenomenon. 4, Left Ventricle: Preserved LV size, wall motion and systolic function with an estimated LVEF of 60. 5. Left Main: Angiographically normal. 6. Left Anterior Descending: a) Anterior trunk/proximal minimal luminal irregularities b) Status post second diagonal branch diffuse 25% stenoses approaching the mid section. c) Mid to distal minimal luminal irregularities. d) Diagonal branch #2 with ostial and proximal 25% diffuse stenosis. 7. Left Circumflex: Proximal 10 to 25% eccentric appearing stenosis 8. Right Coronary Artery: Proximal to mid 10 to 25% stenosis Heart catheterization from May 2016 showed ejection fraction of 65%, left main with mild luminal irregularities, proximal LAD with 25 diffuse eccentric stenosis, mid LAD with 25 diffuse eccentric stenosis, diagonal 1 with proximal 25 diffuse eccentric stenosis, proximal LCx with eccentric 25% stenosis, proximal RCA with mild diffuse eccentric calcification and 25% stenosis, mid RCA with diffuse eccentric 25% stenosis, distal RCA with diffuse eccentric 25% stenosis, normal aortic valve function, normal mitral valve function, and possible dilatation of aortic root. CT scan with contrast in June 2016 showed thoracic aorta as normal with no aneurysm, dissection, or developmental anomalies. Labs LDL Cholesterol 102 mg/dL (0-130) 04/16/16 HDL Cholesterol 68 mg/dL (40-) 04/16/16 Triglycerides 76 mg/dL (-199) 04/16/16 VLDL Cholesterol 15 mg/dL (5-40) 04/16/16 Diagnostics Electrocardiogram 06/18/16 Stress Test Nuclear Medicine 05/29/16 Chest X-Ray 06/17/16 04/07/18 1641 <Electronically signed by Howard BOBO> Date Howard BOBO Cosigner Signature: Date (if applicable) CC: Ezra Guerrero MD CARDIOLOGY VISIT Observed: 07/22/2017 Status: F Source: [facility] REPORT 4:42 PM [facility] [place], [place] REPOSITORY [facility] [address] [place] [address] OFFICE VISIT Date of Service: 07/22/17 MR#: [id number] Acct: [id number] Name: RICKY MAYA Rep #: [id number] : 1940 Provider: Kyle Barrios MD Age/Sex: 77/M Location: [facility] [place] Status: Signed HPI HPI Details: RICKY MAYA, is a 77 M who presents to the office today for for outpatient cardiovascular follow-up. Overall he states he is doing well. He is not complaining of any ongoing symptoms of classic angina pectoris at rest or with exertion. He denies the use of any nitroglycerin sublingual products. There is been no obvious CHF or pulmonary edema. There has been no near syncope or syncope. He does have chronic shortness of breath and dyspnea. He does have audible wheezing. He knows this is related to his underlying tobacco history and his COPD. He does not believe he has had his lipid labs checked in the last 6-12 months to the best of his knowledge. Intake Vital Signs07/22/17 Height 5 ft 8 in 07/22/17 Weight: 190 lb 07/22/17 Body Mass Index (BMI) 28.8 07/22/17 Blood Pressure 110/70 Intake Visit Reasons: 6 M FU Allergies No Known Allergies Allergy (Verified 07/22/17 16:07) Medications Azathioprine 150 mg PO DAILY 06/17/16 [History Confirmed 07/22/17] Mesalamine [Asacol Hd] 2 tab PO TID 06/17/16 [History Confirmed 07/22/17] Prednisone 20 mg PO DAILY 06/17/16 [History Confirmed 07/22/17] Aspirin [Aspirin, Baby] 81 mg PO DAILY@0800 tab.chew 06/18/16 [Rx Confirmed 07/22/17] Atorvastatin Calcium [Lipitor] 40 mg PO QHS #30 tab 06/18/16 [Rx Confirmed 07/22/17] Donepezil HCl [Aricept] 10 mg PO QHS #30 tab 06/18/16 [Rx Confirmed 07/22/17] Lisinopril [Zestril] 10 mg PO DAILY #30 tab 06/18/16 [Rx Confirmed 07/22/17] Metoprolol(XL)Succ [Toprol Xl (Beta Jose Miguel)] 25 mg PO DAILY #30 tab 06/18/16 [Rx] nitroglycerin 0.4 mg sublingual tablet 0.4 mg SUBLINGUAL Q5M PRN 06/08/17 [History Confirmed 07/22/17] sildenafil 100 mg tablet 100 mg PO ONCE PRN 06/08/17 [History Confirmed 07/22/17] [facility] Medical History Hyperlipidemia (Acute) Old myocardial infarction (Acute) Atherosclerotic heart disease of [place] coronary artery without angina pectoris (Chronic) Long-term use of high-risk medication (Acute) COPD (chronic obstructive pulmonary disease) (Chronic) Ulcerative colitis (Chronic) Surgical History History of cholecystectomy (Chronic) Postsurgical percutaneous transluminal coronary angioplasty (PTCA) status (Chronic) Family History Mother CAD (coronary artery disease) Diabetes Social History Smoking Status: Former smoker alcohol intake: current details: occasional ROS Const Const: Negative for fatigue, weakness, weight gain, weight loss, frequent falls or excessive sweating Eyes Eyes: Negative for change in vision, blurry vision or transient loss of vision ENT ENT: Negative for dizziness or balance problems Cardio Chest Pain: No Edema: None Muscle aches with walking: None Resp Respiratory: Positive for SOB at rest and SOB with activity (breathing at baseline) GI GI: Negative vomiting or vomiting blood/hematemesis : Negative for hematuria Musc Musc: Negative for balance problems, muscle aches/ myalgia, muscle weakness or joint pain Skin Skin: Negative non-healing lesions or rash Neuro Neuro: Negative for weakness, blurry vision, dizziness, lightheadedness, frequent falls or orthostatic symptoms Anibal Hematologic/Lymphatic: Negative for easy bleeding Endo Endo: Negative for fatigue or excessive sweating Psych Psych: Negative for anxiety or depression Allergy Allergy/Immunology: Negative for hives, Negative for rash Cardiology Exam Const Appearance: cooperative, healthy appearing, comfortable, well developed and well groomed Nutritional Appearance: overweight Orientation: alert, awake and oriented x3 Head Head: normal to inspection, normocephalic and atraumatic Ears: hearing grossly impaired Nose: external nose normal Face and Sinus: face symmetric Mouth: oral mucosae normal Eyes General: appearance normal, both eyes and all related structures Eyelids: eyelids normal Conjunctivae: conjunctivae normal Pupils: PERRL EOM: EOM intact bilaterally Neck Neck: normal visual inspection and full ROM Carotids: normal carotid upstroke Chest Chest inspection: normal inspection of the chest and symmetric chest movement Auscultation: Bilateral: Diminished Lung Sounds, Expiratory Wheezes Cardio Palpation: normal PMI Rate: regular rate Rhythm: regular rhythm Heart sounds: S1 normal, S2 normal and positive S4 GI GI: normal to inspection, soft, no hepatosplenomegaly and bowel sounds present Neuro General: alert, awake and oriented x3 Skin Skin: no rashes or lesions noted Extremities Pulses: Normal: Right Radial Pulse, Left Radial Pulse Lower Extremity Edema: None: Bilateral Psych Psychological: normal affect Supplemental Info He did have a transthoracic echocardiogram performed on 05/29/2016. The results are as noted below. Interpretation Summary The study was technically difficult. Contrast injection was performed. Based upon the 2D echocardiographic and contrast enhanced images obtained there appears to be grossly normal left ventricular size, wall motion, and systolic function. The estimated ejection fraction is 55 %. Trivial mitral valve insufficiency. Trivial tricuspid valve insufficiency. Mild focal aortic valve thickening. He did have a pharmacologic stress nuclear imaging study performed on 05/29/2016. The results are as noted below. IMPRESSION: 1. Rest and stress SPECT Cardiolite nuclear imaging demonstrate myocardial perfusion changes appearing compatible with an area of stress-induced myocardial ischemia involving the apical regions. 2. The gated Cardiolite study reports an LVEF of 64%. His last diagnostic cardiac catheterization was performed at [facility] on 12/10/2005. The results are as noted below. FINAL IMPRESSION: 1. Mild elevation of left ventricular end diastolic pressures compatible nith decreased diastolic compliance. 2. Secondary pulmonary hypertension thought related to underlying noncardiac pulmonary disease process 3 No obvious evidence of intracardiac shunting phenomenon. 4, Left Ventricle: Preserved LV size, wall motion and systolic function with an estimated LVEF of 60. 5. Left Main: Angiographically normal. 6. Left Anterior Descending: a) Anterior trunk/proximal minimal luminal irregularities b) Status post second diagonal branch diffuse 25% stenoses approaching the mid section. c) Mid to distal minimal luminal irregularities. d) Diagonal branch #2 with ostial and proximal 25% diffuse stenosis. 7. Left Circumflex: Proximal 10 to 25% eccentric appearing stenosis 8. Right [id number] Artery: Proximal to mid 10 to 25% stenosis Assessment AND Plan 1. Atherosclerosis of [place] coronary artery of [place] heart without angina pectoris I25.10 Plan At the present time he appears to be without any acute symptoms. He will continue his current risk factor modification and medical management. 2. Old myocardial infarction I25.2 Plan He does have a history of previous IL. His previous noninvasive and invasive studies are as noted above. He has continued medical therapy and follow-up. 3. Long-term use of high-risk medication Z79.899 Plan He is on long-term medication needing to be monitored. This includes his lipid-lowering therapy. Thus he will have future follow-up labs as deemed appropriate. 4. Hyperlipidemia, unspecified hyperlipidemia type E78.5 Plan He will be scheduled for outpatient fasting lipid/hepatic profile. Orders Orders: 5. Chronic obstructive pulmonary disease, unspecified COPD type J44.9 Plan He does have underlying COPD. He has not wanted to proceed with additional evaluation care at this time. He states that eventually he will need further evaluation care including potential oxygen therapy. Plan Detail Additional Comments He will be scheduled for future outpatient cardiovascular follow-up. Thank you for allowing me to participate in the care of your patient. Please don't hesitate to call if any issues arise. This note was generated using a voice recognition system and there may be incorrect words, spelling or punctuation that were not noted when reviewing the office note prior to saving. Follow Up 9 Months (PFM) Coding Level of Care Code Off vis,est,level 4 Diagnoses Atherosclerosis of [place] coronary artery of [place] heart without angina pectoris I25.10 [place] vs. transplanted heart: [place] heart Old myocardial infarction I25.2 Long-term use of high-risk medication Z79.899 Hyperlipidemia, unspecified hyperlipidemia type E78.5 Hyperlipidemia type: unspecified Chronic obstructive pulmonary disease, unspecified COPD type J44.9 COPD type: unspecified COPD Coding Level of Care Code Off vis,est,level 4 Diagnoses Atherosclerosis of [place] coronary artery of [place] heart without angina pectoris I25.10 [place] vs. transplanted heart: [place] heart Old myocardial infarction I25.2 Long-term use of high-risk medication Z79.899 Hyperlipidemia, unspecified hyperlipidemia type E78.5 Hyperlipidemia type: unspecified Chronic obstructive pulmonary disease, unspecified COPD type J44.9 COPD type: unspecified COPD 07/22/17 1642 <Electronically signed by Kyle Barrios MD> Date Kyle Barrios MD Cosigner Signature: Date (if applicable) CC: Ezra Guerrero MD ALLERGIES ALLERGIES DATE TYPE / CODE NAME / CODE REACTION SEVERITY SOURCE 04/07/2018 Drug No Known Unknown Katherine [facility] Allergy/4160 Allergies/F00 [facility] 29821(SNOMED [id number](RXNOR Repository CT) M) ENCOUNTERS ENCOUNTERS ADMIT/DISCHARGE ACCOUNT ADMITTING ENCOUNTER LOCATION SOURCE NUMBER CLASS 04/15/2018 [id number] Ambulatory Katherine Katherine 4 [facility] ing:[id number] Repository 04/07/2018/ [id number] Ambulatory BMSBuilding:B Katherine 9 5 [facility] Repository 07/22/2017/ [id number] Ambulatory BMSBuilding:B Katherine 8 0 [facility] Repository 06/08/2017 [id number] Ambulatory BMSBuilding:B [place] 0 [facility] Repository PAYERS PAYERS ENCOUNTER GUARANTOR PAYER SUBSCRIBER SOURCE 04/15/2018 RICKY Bowie Primary RICKY [id number] [facility] [id number]: Repository [address]Iia: [phone] [id number] [phone] () Date:2018-04-08 04/15/2018 Secondary RICKY Murphy Insurance:[facility]ISAEn[facility]: [facility] Number: [id number] [id number] Repository Date:[address], [place] [address]GA: 04/15/2018 Tertiary NOT GIVENUNK Katherine Insurance:SELF PAY [facility] Number: Effective Repository Date:2018-04-08 04/07/2018 RICKY L Primary RICKY L [place] [id number] Insurance:MEDICARE SMITHDOB: Community [place] PART A [facility] [id number] [place] Number: Repository [id number]: 330 [id number] [phone] (HP) Date:2017-07-22 04/07/2018 Secondary RICKY L [place] Insurance:CIGNAPolicy SMITHDOB: Community Number: [id number] Hospital [id number] Repository Date:1644-22-66HE [address], [place] [address]OX: 04/07/2018 Tertiary NOT GIVENUNK Katherine Insurance:SELF PAY [facility] Number: Effective Repository Date:2018-04-07 07/22/2017 RICKY L Primary RICKY L [place] [id number] Insurance:MEDICARE SMITHDOB: Community [place] PART A [facility] [id number] [place] Number: Repository [id number]: 330 [id number] [phone] () Date:2017-03-16 07/22/2017 Secondary RICKY L Katherine Insurance:CIGNAPolicy SMITHDOB: Community Number: [id number] Hospital [id number] Repository Date:0028-75-84OM [address]YDZZDZ[address], [place] [address]PT: 07/22/2017 Tertiary NOT GIVENUNK Katherine Insurance:SELF PAY [facility] Number: Effective Repository Date:2017-03-16 06/08/2017 [place] Primary [place] Katherine [id number] Insurance:MEDICARE SmithDOB: [facility] PART A [facility] [id number] [facility] [place] Number: Repository [id number]: [phone] [id number] [phone] () Date:2017-06-08 06/08/2017 Secondary Ricky Murphy Insurance:Amanda GutierrezB: [facility] Number: [id number] Hospital [id number] Repository Date:6800-81-98SS [place] 1339[address]SAZSIVIPHMQ, [place] [address]KV: 06/08/2017 Tertiary NOT GIVENGAVIN Murphy Insurance:SELF PAY [facility] Number: Effective Repository Date:2017-06-08
== END ==
PROVIDERS: Family Provider Family Medicine Geriatric Medicine; PCP Family Medicine Geriatric Medicine; Visit Provider Family Medicine Geriatric Medicine
DX: E11.9 Type 2 diabetes mellitus without complications (principal); E55.9 Vitamin D deficiency, unspecified; I10 Essential (primary) hypertension
CPT/HCPCS: 36415; 80053; 82306; 84443; 85025

== ENCOUNTER → 2018-07-09 13:09 | Outpatient (CLI) | payer MEDICARE, OTHER, SELFPAY ==
[2018-06-23 12:49] VITALS: BMI 30.1
--- NOTE | 2018-07-09 13:11 | ECHOCS_ITS ---
Reason For Study: Dyspnea/SOB Procedure This was a 2D Doppler, Color Flow transthoracic echocardiogram. Ok to use Definity per Dr. Barrios. The study was technically difficult. Contrast injection was performed. Exam performed in department. Left Ventricle Normal LV size. Segmental dysfunction with preserved ejection fraction (see wall motion). The estimated ejection fraction is 55 %. No evidence for diastolic dysfunction. Infero-Basal: Hypokinetic. Mid-Inferior: Hypokinetic. Right Ventricle Mildly dilated right ventricle. Normal systolic function. Atria Normal left atrium. Normal right atrium. No doppler evidence for ASD. Mitral Valve There is no mitral annular calcification. Normal mitral valve. Trivial mitral valve insufficiency. Tricuspid Valve Normal tricuspid valve. Mild to moderate (1-2+) tricuspid valve insufficiency. Right ventricular systolic pressure estimated to be 51 mmHg. Aortic Valve Trisinus/trileaflet aortic valve. Mild diffuse aortic valve thickening. Mild (1+) aortic valve insufficiency. Pulmonic Valve The pulmonic valve is not well visualized. Great Vessels Normal sized aortic root. Pericardium/Pleural No pericardial effusion. Medication Definity0.6ml given slow IV push to enhance endocardial definition. MMode/2D Measurements & Calculations LVIDd: 4.6 cm IVSd: 1.4 cm Ao root diam: 3.4 cm LVIDs: 3.8 cm LVPWd: 0.96 cm RVDd: 4.1 cm FS: 18.6 % LAV(MOD-bp): 32.8 ml LVAd ap4: 26.1 cm2 SV(MOD-sp4): 30.1 ml LAV(MOD-bp) Indexed: 17.2 ml/m2 EDV(MOD-sp4): 74.1 ml LAV(MOD-sp2): 41.8 ml EDV(sp4-el): 78.1 ml LAV(MOD-sp4): 22.6 ml LVAs ap4: 19.0 cm2 ESV(MOD-sp4): 44.0 ml ESV(sp4-el): 46.1 ml EF(MOD-sp4): 40.7 % EF(sp4-el): 41.1 % SV(sp4-el): 32.1 ml LA A4 area: 12.1 cm2 LA dimension(2D): 3.7 cm RA A4 area: 19.7 cm2 Doppler Measurements & Calculations MV E max chencho: 38.0 cm/sec Lat Peak E' Chencho: 5.2 cm/sec Med Peak E' Chencho: 5.4 cm/sec MV A max chencho: 88.4 cm/sec E/E' lat: 7.4 E/E' med: 7.0 MV E/A: 0.43 Ao V2 max: 121.3 cm/sec LV V1 max: 109.6 cm/sec PA V2 max: 61.1 cm/sec Ao max P.9 mmHg LV V1 max P.8 mmHg Ao V2 mean: 86.4 cm/sec Ao mean P.3 mmHg Ao V2 VTI: 21.0 cm TR max chencho: 346.0 cm/sec TR max P.9 mmHg Interpretation Summary The study was technically difficult. Contrast injection was performed. Segmental dysfunction with preserved ejection fraction (see wall motion). The estimated ejection fraction is 55 %. Mildly dilated right ventricle. Trivial mitral valve insufficiency. Mild to moderate (1-2+) tricuspid valve insufficiency. Mild diffuse aortic valve thickening. Mild (1+) aortic valve insufficiency. Right ventricular systolic pressure estimated to be 51 mmHg. No evidence for diastolic dysfunction. Ordering Physician: Howard Edwards Referring Physician: Ezra Guerrero Chi Performed By: Jania Edwards, MARCIALCS, RVT
[2018-07-09 15:53] LABS: Anion Gap 5 (5-15); BUN 14 mg/dL (7-18); BUN/Creat Ratio 16.2 RATIO (10-20); Calcium,Total 8.5 mg/dL (8.5-10.1); Chloride 102 mmol/L (98-107); Creatinine, Serum 0.86 mg/dL (0.70-1.30); EST Glomerular Filtration Rate 91 mL/min (>60); Est Glom Filt Rate - Afr Amer 110 mL/min (>60); Glucose 98 mg/dL (74-106); Potassium 4.4 mmol/L (3.5-5.1); Sodium Level 141 mmol/L (136-145)
== END ==
PROVIDERS: Family Provider Family Medicine Geriatric Medicine; PCP Family Medicine Geriatric Medicine; Referring Provider Nurse Practitioner Family; Visit Provider Nurse Practitioner Family
DX: I25.2 Old myocardial infarction (principal); R06.09 Other forms of dyspnea; R60.0 Localized edema
CPT/HCPCS: 36415; 80048; 93306; Q9957; A4216; C8929

== ENCOUNTER → 2018-10-14 | Outpatient (CLI) | payer MEDICARE, OTHER, SELFPAY ==
[2018-10-13 15:33] VITALS: BMI 27.8
[2018-10-14 17:16] LABS: Absolute Lymphocyte Count 1.33 X10^3/uL (0.83-4.51); Absolute Neutrophil Count 7.2 X10^3/uL (2.0-7.7); Basophil# 0.03 X10^3/uL; Basophil% 0.3 % (0-1); Eosinophil# 0.12 X10^3/uL; Eosinophils% 1.3 % (0-5); Lymphocyte # 1.33 X10^3/ul (4.0); Mean Corp Hgb Conc 30.6 g/dL (32-36); Mean Corpuscular Hgb 30.3 pg (27.0-32.0); Mean Platelet Vol. 10.1 fl (6.2-12.0); Monocyte# 0.76 X10^3/uL; NRBC Flagged by Analyzer 0 % (0-5); Neutrophil # 7.23 X10^3/uL (2.7-7.7); Neutrophil % 76.1 % (47-70); Platelet Count 249 K/mm3 (150-450); RBC Distribution Width CV 14.2 % (11.6-14.6); RBC Distribution Width SD 52.2 fl (35.1-43.9); Red Blood Count 5.94 M/mm3 (4.6-6.2); White Blood Count 9.5 K/mm3 (4.4-11.0)
[2018-10-14 17:24] LABS: Hematocrit 58.8 % (40-54)
[2018-10-14 17:44] LABS: ALB/GLOB Ratio 0.9 RATIO (0.9-2.4); AST(SGOT) 12 U/L (15-37); Alanine Aminotransfer ALT/SGPT 17 U/L (16-61); Albumin, Serum 3.2 g/dL (3.2-5.0); Alkaline Phosphatase 60 U/L (45-117); Anion Gap 6 (5-15); BUN 12 mg/dL (7-18); BUN/Creat Ratio 14.1 RATIO (10-20); Calcium,Total 8.4 mg/dL (8.5-10.1); Chloride 104 mmol/L (98-107); Creatinine, Serum 0.85 mg/dL (0.70-1.30); EST Glomerular Filtration Rate 93 mL/min (>60); Est Glom Filt Rate - Afr Amer 112 mL/min (>60); Globulin 3.5 g/dL (2.2-4.2); Glucose 98 mg/dL (74-106); Potassium 4.8 mmol/L (3.5-5.1); Protein, Total 6.7 g/dL (6.4-8.2); Sodium Level 143 mmol/L (136-145); Thyroid Stim Hormone (TSH) 2.17 uIU/mL (0.358-3.74); Vitamin D,25 Hydroxy 6.3 ng/mL (29.95-100.01)
[2018-10-15 09:40] LABS: Pathologist Review Reviewed
== END | disposition home or self-care (01) ==
LOC: POLAB3 13:57
PROVIDERS: Family Provider Family Medicine Geriatric Medicine; PCP Family Medicine Geriatric Medicine; Visit Provider Family Medicine Geriatric Medicine
DX: E11.9 Type 2 diabetes mellitus without complications (principal); E55.9 Vitamin D deficiency, unspecified; I10 Essential (primary) hypertension
CPT/HCPCS: 36415; 80053; 82306; 84443; 85025

== ENCOUNTER 2019-04-02 06:58 | Emergency (ER) | payer MEDICARE, OTHER, SELFPAY ==
[2018-10-13 15:33] VITALS: BMI 27.8
[2019-04-02 06:59] VITALS: BP 145/84; PULSE 88; RESP 22; TEMP 37; O2SAT 97; BMI 29.8
--- NOTE | 2019-04-02 07:04 | EKG12_ITS ---
Test Reason : SOB Blood Pressure : / mmHG Vent. Rate : 090 BPM Atrial Rate : 090 BPM P-R Int : 194 ms QRS Dur : 116 ms QT Int : 406 ms P-R-T Axes : 019 035 -74 degrees QTc Int : 496 ms Normal sinus rhythm Inferior infarct , age undetermined Anteroseptal infarct , age undetermined ST & T wave abnormality, consider lateral ischemia Abnormal ECG Confirmed by JUANCHO EMERSON, NAYAN ([id number]), purchase request editor NEAL DANIEL ([id number]) on 04/05/2019 8:47:27 AM Referred By: BRYAN Confirmed By:NAYAN DAWKINS MD
--- NOTE | 2019-04-02 07:04 | RAD_ITS ---
HISTORY: chest pain ADDITIONAL HISTORY: None provided. TECHNIQUE: Frontal chest radiograph. Number of images including paperwork: 1 COMPARISON: None FINDINGS: LUNGS AND PLEURA: Mild bibasilar opacities with somewhat linear configuration. No dense consolidation. No sizable pleural effusion. CARDIAC SILHOUETTE: Moderately enlarged. MEDIASTINUM AND RICHARDSON: Aortic calcification and tortuosity. UPPER ABDOMEN: Unremarkable. SKELETON AND SOFT TISSUES: No acute findings. Degenerative changes. OTHER DEVICES AND HARDWARE: None. RAD/Chest 1 View (Portable) IMPRESSION: Bibasilar atelectasis versus infiltrates. at 0756 Reported and signed by: Keyana Kelly MD Electronically Signed: Keyana Kelly MD at 7:56 EST Tel , Service support ,
--- NOTE | 2019-04-02 07:22 | ED.VISSUMM ---
- ER Visit Summary Date of Service: 04/02/19 Chief Complaint: Acute on chronic shortness of breath History of Present Illness: The patient is a 78 M history of COPD and recent onset dementia unsure at this time if he is on home O2 or not. The patient is a poor informant. He states he is short of breath all the time and has been for months to years. But it was worse today. The squad was actually called out to the house for his when they were they are evaluating her he was short of breath and hypoxic at 88 on room air so they brought him in also. He denies any chest pain. He denies any new cough. He denies any fever or chills. He does have some swelling in his lower extremities. Physical Examination: Older male no acute distress on oxygen is set is 97%. HEENT exam unremarkable. Neck nontender no JVD no lymphadenopathy. Lungs prolonged expiratory phase. Expiratory wheezing on both lung miller. No rales or rhonchi. Equal symmetrical. Heart regular rate and rhythm rate about 90 no murmur. Abdomen is soft and nontender normal bowel sounds no peritoneal signs. Patient is moving all 4 extremities. He does have 1+ pitting edema equal and symmetrical in both lower extremities. Calves are nontender without cords. Neurologically is a poor informant but is awake alert. He does answer questions. He follows commands. He has no focal motor deficit. Test Results: EKG shows a normal sinus rhythm rate of 90. 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 Portable chest x-ray one view read by myself and the radiologist shows bibasilar atelectasis but no obvious pneumonia. CBC shows a white count 9 hemoglobin 17. No bands. Chemistries unremarkable CO2 at 37. Normal creatinine gap. Troponin is normal. BNP is pending. Emergency Department Course and Treatment: Patient treated with DuoNeb and albuterol aerosols. IV Solu-Medrol. Repeat exam patient is doing well at 8:50 AM. Breathing has improved. On oxygen his sats are 94%. I discussed with the patient's son is in the emergency department and he does have home oxygen he has refuses to use it most of the time. The patient I discussed this and he states he will use it if he needs it. Son is comfortable with him being discharged home. Patient's is actually being admitted currently but the son will help make accommodations at home to make sure he is taken care of. Treatment Plan: Prednisone 40 mg a day for 1 week. Follow-up with his doctor. Return if feeling worse. He uses oxygen as needed. Disposition: Discharge Impression: Acute dyspnea with hypoxia on room air Acute exacerbation of COPD This note was generated with [employer] dictation software. It may contain incorrect words, spelling, and punctuation that were not noted in review of the chart prior to signing ED Disposition - Plan for ED Patient: Referrals: Ezra Guerrero Chi, MD [Primary Care Provider] -
[2019-04-02 07:27] VITALS: PULSE 79; RESP 18; RESP 24; O2SAT 94
[2019-04-02] MEDS: Ipratropium/Albuterol Sulfate 3 ML AMPUL.NEB INHALATION (07:27)
[2019-04-02] MEDS: Albuterol 2.5 MG/3 ML VIAL.NEB. INHALATION ×2 (07:27)
[2019-04-02 07:30] LABS: Absolute Neutrophil Count 6.8 X10^3/uL (2.0-7.7); Basophil# 0.04 X10^3/uL; Basophil% 0.4 % (0-1); Eosinophil# 0.16 X10^3/uL; Eosinophils% 1.7 % (0-5); Hemoglobin 17.8 g/dL (13.0-16.5); Lymphocyte % 15.3 % (19-41); Mean Corp Hgb Conc 31.6 g/dL (32-36); Mean Corpuscular Hgb 31.8 pg (27.0-32.0); Mean Corpuscular Volume 100.7 fL (80-94); Monocyte# 0.78 X10^3/uL; Monocyte% 8.5 % (0-10); NRBC Flagged by Analyzer 0 % (0-5); Neutrophil # 6.76 X10^3/uL (2.7-7.7); Neutrophil % 73.9 % (47-70); Platelet Count 244 K/mm3 (150-450); RBC Distribution Width CV 13.1 % (11.6-14.6); RBC Distribution Width SD 48.8 fl (35.1-43.9); White Blood Count 9.2 K/mm3 (4.4-11.0)
[2019-04-02 07:32] LABS: Hematocrit 56.4 % (40-54)
[2019-04-02] MEDS: MethylPREDNISolone 125 MG/2 ML Vial IV (07:35)
[2019-04-02 07:49] LABS: Anion Gap 2 (5-15); BUN 14 mg/dL (7-18); BUN/Creat Ratio 14.4 RATIO (10-20); Calcium,Total 8.2 mg/dL (8.5-10.1); Chloride 103 mmol/L (98-107); Creatinine, Serum 0.97 mg/dL (0.70-1.30); EST Glomerular Filtration Rate 79 mL/min (>60); Est Glom Filt Rate - Afr Amer 96 mL/min (>60); Glucose 113 mg/dL (74-106); Potassium 4.3 mmol/L (3.5-5.1); Sodium Level 142 mmol/L (136-145)
[2019-04-02 08:03] VITALS: O2SAT 96
--- NOTE | 2019-04-02 08:53 | ED.DEP ---
ED Disposition - Plan for ED Patient: Disposition: Home or Assisted Living Instructions: Copd Flare Prescriptions: Prednisone [Deltasone] 40 mg PO DAILY 7 Days tab Prescription Printed Referrals: Ezra Guerrero Chi, MD [Primary Care Provider] - 3-5 Days Additional Instructions: Prednisone 40 mg a day for 1 week. This will decrease inflammation in your lungs and help with your breathing. Follow-up with your doctor in 3 to 5 days. Return emergency department if you are feeling worse.
[2019-04-02 09:00] VITALS: BP 136/72; PULSE 89; RESP 26; O2SAT 83
[2019-04-02 09:11] VITALS: O2SAT 90
[2019-04-02 09:14] LABS: BNP,B-Type NATRIURETIC PEPTIDE 497.1 pg/mL (0-100)
[2019-04-02 09:25] VITALS: BP 138/75; PULSE 91; RESP 20; O2SAT 97
== END 2019-04-02 09:26 | disposition home or self-care (01) ==
PROVIDERS: Emergency Provider Emergency Medicine; Family Provider Family Medicine Geriatric Medicine; PCP Family Medicine Geriatric Medicine
DX: J44.1 Chronic obstructive pulmonary disease with (acute) exacerbation (principal); R09.02 Hypoxemia; M79.89 Other specified soft tissue disorders; I10 Essential (primary) hypertension; F03.90 Unspecified dementia, unspecified severity, without behavioral disturbance, psychotic disturbance, mood disturbance, and anxiety; Z79.82 Long term (current) use of aspirin; Z79.52 Long term (current) use of systemic steroids; Z79.899 Other long term (current) drug therapy
CPT/HCPCS: 71045; 80048; 83880; 84484; 85025; 93005; 94640; 96374; 99251; 99285; A4216; G0463

== ENCOUNTER → 2019-04-18 13:42 | Outpatient (CLI) | payer MEDICARE, OTHER, SELFPAY ==
[2019-04-18 14:09] LABS: Absolute Lymphocyte Count 1.08 X10^3/uL (0.83-4.51); Absolute Neutrophil Count 8.9 X10^3/uL (2.0-7.7); Basophil# 0.05 X10^3/uL; Basophil% 0.5 % (0-1); Eosinophil# 0.08 X10^3/uL; Eosinophils% 0.7 % (0-5); Lymphocyte # 1.08 X10^3/ul (4.0); Lymphocyte % 9.9 % (19-41); Mean Corp Hgb Conc 30.6 g/dL (32-36); Mean Corpuscular Hgb 30.8 pg (27.0-32.0); Mean Corpuscular Volume 100.7 fL (80-94); Mean Platelet Vol. 9.4 fl (6.2-12.0); Monocyte# 0.78 X10^3/uL; Monocyte% 7.2 % (0-10); NRBC Flagged by Analyzer 0 % (0-5); Neutrophil # 8.85 X10^3/uL (2.7-7.7); Neutrophil % 81.3 % (47-70); Platelet Count 246 K/mm3 (150-450); RBC Distribution Width CV 12.5 % (11.6-14.6); Red Blood Count 5.84 M/mm3 (4.6-6.2); White Blood Count 10.9 K/mm3 (4.4-11.0)
[2019-04-18 14:11] LABS: Hematocrit 58.8 % (40-54)
[2019-04-18 14:29] LABS: AST(SGOT) 15 U/L (15-37); Alanine Aminotransfer ALT/SGPT 19 U/L (16-61); Albumin, Serum 3.2 g/dL (3.2-5.0); Alkaline Phosphatase 55 U/L (45-117); Anion Gap 1 (5-15); BUN 10 mg/dL (7-18); BUN/Creat Ratio 10.2 RATIO (10-20); Calcium,Total 8.4 mg/dL (8.5-10.1); Chloride 100 mmol/L (98-107); Creatinine, Serum 0.98 mg/dL (0.70-1.30); EST Glomerular Filtration Rate 79 mL/min (>60); Est Glom Filt Rate - Afr Amer 96 mL/min (>60); Globulin 3.2 g/dL (2.2-4.2); Glucose 89 mg/dL (74-106); Protein, Total 6.4 g/dL (6.4-8.2); Sodium Level 139 mmol/L (136-145); Thyroid Stim Hormone (TSH) 1.91 uIU/mL (0.358-3.74)
[2019-04-18 14:31] LABS: Vitamin D,25 Hydroxy < 4.2 ng/mL (29.95-100.01)
[2019-04-25 16:22] VITALS: BMI 30.9
== END ==
PROVIDERS: PCP Family Medicine Geriatric Medicine; Visit Provider Family Medicine Geriatric Medicine
DX: E11.9 Type 2 diabetes mellitus without complications (principal); I10 Essential (primary) hypertension; E55.9 Vitamin D deficiency, unspecified
CPT/HCPCS: 36415; 80053; 82306; 84443; 85025